=== PATIENT | female | born 1980 | race American Indian/Alaskan Native ===

== ENCOUNTER 2016-11-28 07:05 | Inpatient (IN) | payer SELFPAY ==
--- NOTE | 2016-11-24 12:33 | Anesthesia Consultation ---
Anesthesia Consult and Med Hx Date of service: 11/24/16 - Airway Anesthetic Teeth Evaluation: Good ROM Head & Neck: Adequate Mental/Hyoid Distance: Adequate Mallampati Class: Class II Intubation Access Assessment: Probably Good - Pulmonary Exam CTA: Yes - Cardiac Exam Cardiac Exam: RRR - Pre-Operative Health Status ASA Pre-Surgery Classification: ASA2 Proposed Anesthetic Plan: General - Pulmonary Hx Smoking: Yes Hx Asthma: Yes (resolved) - Central Nervous System Hx Psychiatric Problems: No - Hematic Hx Anemia: Yes - Other Systems Hx Alcohol Use: Yes (occas) Hx Cancer: No
[2016-11-24 12:36] LABS: Basophils % (Auto) 0.4 % (0.0-1.8); Eosinophils % (Auto) 0.6 % (0.0-4.3); Hematocrit 32.9 % (30.3-42.9); Hemoglobin 10.9 gm/dl (10.1-14.3); Mean Corpuscular HGB Conc 33 % (30-34); Mean Corpuscular Hemoglobin 32 pg (28-32); Mean Corpuscular Volume 97 fl (79-97); Platelet Count 185 K/mm3 (140-440); White Blood Count 4.4 K/mm3 (4.5-11.0)
--- NOTE | 2016-11-27 14:38 | Admit Criteria Form ---
Admission Criteria Documentation: AMBULATORY SURGERY EXCEPTION CRITERIA Ambulatory Surgery Exception Criteria ( Place 'X' for any and all applicable criteria): Surgery or procedure performed on ambulatory basis may require inpatient stay for[A] ANY ONE of the following(1)(2)(3)(4)(5)(6)(7)(8)(9): [X] I. A preoperative situation, condition, or finding that warrants inpatient stay as indicated by ANY ONE of the following: [] a) Inpatient care needed because of severity of a disease or condition rather than the surgery (eg, severe cardiac or respiratory disease, severe infection) (15) (16 ) (17) (18) [] b) Emergent procedure (eg, angioplasty for acute ischemia)(19) [X] c) Complex surgical approach or situation as indicated by ANY ONE of the following(3): [X] i) Open approach needed instead of usual endoscopic, transcatheter, or other less invasive procedure [] ii) Difficult approach because of previous operation [] iii) Airway monitoring required after open neck procedures(20)(21) [] iv) Large mass requiring unusually extensive dissection [] v) Additional complicating feature requiring inpatient care (eg, drain management)(22(23): [] d) Major surgery in a pt with high anesthetic risk as indicated by ANY ONE of the following (2)(3)(5)(7)(8): [] i) ASA risk class III or higher (severe systemic disease impairing function) [D] [] ii) Advanced age (eg, older than 85 years)(14)(24) [] iii) Symptomatic heart failure(25) [] iv) Symptomatic asthma or COPD(8)(21) [] v) Morbid obesity with hemodynamic or respiratory problems(20)( 21)(26)(27) [] vi) Obstructive sleep apnea(20)(21) [] vii) Former premature infants who are younger than 60 weeks [] viii) High risk for severe postoperative abnormalities (eg, severe postoperative hypocalcemia after parathyroidectomy for severe hyperparathyroidism)(27)( 28) [] ix) Unstable angina(25) [] e) Drug-related risk requiring inpatient stay as indicated by ANY ONE of the following(5)(10)(14)(32)(33) [] i) Procedure requires discontinuing drugs or other therapy (eg , antiarrhythmic medication, antiseizure medication), which necessitates inpatient observation or treatment.(18)(31) [] ii) Major surgery and high risk drug use as indicated by ANY ONE of the following: [] 1) Active abuse of cocaine or similar drug [] 2) Monoamine oxidase inhibitor use [] 3) Other drug identified as posing risk [] f) Inadequate outpatient care situation as indicated by ANY ONE of the following(5)(10)(14)(32)(33) [] i) Patient lives remote from medical facility and procedure has urgent complication potential, and temporary nearby residence cannot be arranged [] ii) Patient will have postprocedure incapacitation and inadequate assistance at home, or alternative level of care cannot be arranged. [] iii) Patient will have long general anesthesia or procedure side effect resolution time, and competent person to stay with patient on first postoperative night at home or alternative level of care cannot be arranged. []iv) Other inadequate outpatient situation that cannot be handled by other means [] II. A perioperative event, condition, or finding that warrants inpatient stay as indicated by ANY ONE of the following (1)(2)(3): [] a) Inadequate physiologic recovery: cardiovascular, respiratory, or hemodynamic status not normal or near preoperative baseline(18) [] b) Hemodynamic instability [] c) Patient not alert with near normal or baseline mental status [] d) Temperature not normal or as expected and not appropriate for outpatient treatment of condition [] e) Ambulatory or appropriate activity level status not yet achieved post procedure [E](34)(35)(36) [] f) Operative site not appropriate (eg, unexpected or excessive drainage or bleeding) [] g) Postoperative effects not resolved or adequately managed (eg, significant pain or vomiting not appropriate for outpatient or next level of care)(10)(12) [] h) Complicating features requiring inpatient care as indicated by ANY ONE of the following(37): [] i) Severe complications of procedure (eg, bowel injury, airway compromise, vascular injury,severe hemorrhage) [] ii) Extensive (eg, dissection far beyond usual scope of procedure ) or prolonged (eg, 120 minutes beyond usual) surgery needed requiring inpatient postoperative care [] iii) Conversion to an open or complex procedure that requires inpatient care (eg, open vs laparoscopic cholecystectomy, abdominal vs vaginal hysterectomy)(38) [] iv) Comorbid condition or test result identified during or post procedure that requires inpatient care (7) [] v) Malignant hyperthermia(30) [] vi) Other complicating feature requiring inpatient care(22)(23) Inpatient stay may be needed until ALL of the following are present (1)(2)(3)(4) (5)(6)(10)(14)(33)(40): []a) Physiologic recovery: cardiovascular, respiratory, and hemodynamic status normal or near preoperative baseline []b) Hemodynamic stability []c) Patient alert, with near normal or baseline mental status []d) Temperature appropriate: patient afebrile or temperature appropriate for outpt treatment of condition []e) Activity level appropriate: ambulatory or appropriate activity level post procedure []f) Operative site appropriate as indicated by ALL of the following: []i) Site dry or with expected drainage []ii) Any blood noted is as expected for procedure. []g) Postoperative effects resolved or managed as indicated by ALL of the following: []i) Pain management appropriate for outpatient (or next level of) care(10) []ii) Minimal nausea and vomiting: if present, successfully treated with oral medication(12) []iii) Headache, dizziness, or drowsiness (if present) are mild. []h) Voiding status acceptable as indicated by ANY ONE of the following: []i) Voiding spontaneously []ii) No voiding but instructions given for follow-up in 6 to 8 hours []iii) Urinary catheter in place, and instructions given for follow-up []i) Complicating features requiring inpatient care manageable at a lower level of care(37) []j) Comorbid conditions manageable at a lower level of care(37) The original [employer] content created by [employer] has been revised. The portions of the content which have been revised are identified through the use of italic text or in bold, and [facility] [employer] has neither reviewed nor approved the modified material. All other unmodified content is copyright [employer]. Please see references footnoted in the original [employer] edition 2016 Admission Criteria Met: Yes
[~2016-11-28 07:05] MED LIST: NACL 0.9% 1000 ML 1,000 ML IV SCH; NEURONTIN PO NR; PEPCID PO NR; VERSED IV NR
[2016-11-28] MEDS ORDERED: SUBLIMAZE IV SCH (07:32)
[2016-11-28] MEDS ORDERED: GARAMYCIN 80 MG in NACL 0.9% 100 ML IV SCH (07:45)
--- NOTE | 2016-11-28 07:45 | Short Stay Summary ---
Short Stay Documentation Date of service: 11/28/16 Narrative H&P: Pt is a 36yo BF G0 LMP 11/22/16 presents for surgical evaluation and treatment of her uterine fibroids. Pelvic u/s showed an enlarged uterus with 5 fibroids. Pt desires future fertility, and therefore is scheduled for an Abdominal Myomectomy. - History Principal diagnosis: Symptomatic fibroid uterus H&P: obtained from office Past Medical History: No medical history Past Surgical History: Other (Bartholin cyst removal) Social history: no significant social history, single - Allergies and Medications Current Medications: Allergies Penicillins Allergy (Verified 11/20/16 16:34) Itching Home Medications Medication Instructions Recorded Confirmed Last Taken Type Biotin 10,000 mcg PO DAILY 11/20/16 11/20/16 Unknown History Ferrous Sulfate [Feosol] 325 mg PO QDAY 11/20/16 11/20/16 Unknown History Folic Acid 20 mg PO QDAY 11/20/16 11/20/16 Unknown History Multivitamin with Folic Acid [One 400 mcg PO DAILY 11/20/16 11/20/16 Unknown History Daily Multivitamin Tablet] traMADol [Ultram] 50 mg PO Q4HR PRN 11/20/16 11/20/16 Unknown History Active Medications Celecoxib (Celebrex) 200 mg PO PREOP NR Stop: 11/28/16 23:00 Famotidine (Pepcid) 20 mg PO PREOP NR Stop: 11/28/16 23:01 Fentanyl (Sublimaze) 100 mcg IV ONCE TYLOR Stop: 11/28/16 23:00 Gabapentin (Neurontin) 300 mg PO PREOP NR Stop: 11/28/16 23:01 Sodium Chloride (Nacl 0.9% 1000 Ml) 1,000 mls @ 100 mls/hr IV DIRECT TYLOR Clindamycin HCl (Cleocin 600 Mg/50 Ml) 600 mg in 50 mls @ 100 mls/hr IV PREOP TYLOR PRN Reason: Protocol Gentamicin Sulfate 80 mg/ (Sodium Chloride) 102 mls @ 200 mls/hr IV PREOP TYLOR PRN Reason: Protocol - Physical exam General appearance: no acute distress Integumentary: no rash HEENT: Atraumatic Lungs: Clear to auscultation Breasts: deferred Heart: Regular rate Gastrointestinal: normal Female Genitourinary: deferred Rectal Exam: deferred Extremities: No edema Neurological: Normal speech - Brief post op/procedure progress note Date of procedure: 11/28/16 Pre-op diagnosis: Symptomatic fibroid uterus Post-op diagnosis: same Procedure: Abdominal myomectomy Anesthesia: GETA, regional (MARISOL block) Findings: A 16 weeks size multimyomatous uterus with 3 large fibroids , tortuous fallopian tubes bilaterally, and normal ovaries bilaterally. Surgeon: YENY WILL Estimated blood loss: other (150ml) Pathology: list (uterine fibroids) Specimen disposition: to lab Condition: stable - Hospital course Hospital course: Unremarkable. Pt tolerated the abdominal myomectomy without complications. By POD #1 she was tolerating a reg diet without nausea or vomiting, ambulating and voiding without difficulty. She was therefore discharged to home on POD #1 in stable condition. - Disposition Condition at discharge: Good Disposition: DISCHARGED TO HOME OR SELFCARE - Discharge Diagnoses (1) Status post myomectomy Status: Resolved Short Stay Discharge Plan Activity: no restrictions Diet: regular Wound: open to air, keep clean and dry Follow up with: PRIMARY CAREMD [Primary Care Provider] - 7 Days YENY WILL MD [Staff Physician] - 14 Days Prescriptions: Ibuprofen [Motrin] 800 mg PO Q8HR PRN #30 tablet PRN Reason: Mild Pain Unrelieved By Apap oxyCODONE /ACETAMINOPHEN [Percocet 5/325 mg] 1 tab PO Q6H PRN #30 tablet PRN Reason: Pain, Moderate (4-6)
[2016-11-28] MEDS ORDERED: CLEOCIN 600 MG/50 mL 600 MG/50 ML BAG IV SCH (08:00)
[2016-11-28] MEDS ORDERED: DIPRIVAN 10 MG/ML IV ONE (08:29)
[2016-11-28] MEDS ORDERED: ZOFRAN ONE (08:30)
[2016-11-28] MEDS ORDERED: ZEMURON IV ONE (08:30)
[2016-11-28] MEDS ORDERED: XYLOCAINE MPF 2% ONE (08:30)
[2016-11-28] MEDS ORDERED: DILAUDID ONE (08:30)
[2016-11-28] MEDS ORDERED: DECADRON ONE (08:30)
[2016-11-28] MEDS ORDERED: MARCAINE-EPI 0.5%-1:200,000 INFILTRATI ONE ×2 (08:40→09:00)
[2016-11-28] MEDS ORDERED: NACL BACTERIOSTATIC INFILTRATI ONE (08:43)
[2016-11-28] MEDS ORDERED: XYLOCAINE 1% 20 mL INFILTRATI NR (09:00)
[2016-11-28] MEDS ORDERED: VERSED IV NR (09:00)
[2016-11-28] MEDS ORDERED: DECADRON IV ONE (09:00)
[2016-11-28] MEDS ORDERED: NEURONTIN PO NR (09:00)
[2016-11-28] MEDS ORDERED: ACD-A 500 ML IV ONE (10:08)
[2016-11-28] MEDS ORDERED: NACL 0.9% 100 ML ONE (10:10)
[2016-11-28] MEDS ORDERED: ACD-A IV ONE (11:06)
[2016-11-28] MEDS ORDERED: NACL 0.9% IV ONE (11:08)
[2016-11-28] MEDS ORDERED: NACL 0.9% IR ONE (11:08)
[2016-11-28] MEDS ORDERED: NARCAN 0.4 MG/1 ML IV PRN ×2 (11:33→12:00)
[2016-11-28] MEDS ORDERED: MORPHINE PCA 30MG/30ML IV SCH (12:00)
[2016-11-28] MEDS ORDERED: BENADRYL IV PRN (12:00)
[2016-11-28] MEDS ORDERED: NORCO 5/325 PO PRN (12:00)
[2016-11-28] MEDS ORDERED: MILK OF MAGNESIA PO PRN (12:00)
[2016-11-28] MEDS ORDERED: D5LR 1,000 ML IV SCH (12:00)
[2016-11-28] MEDS ORDERED: TYLENOL PO PRN (12:00)
[2016-11-28] MEDS ORDERED: PERCOCET 5/325 PO PRN (12:00)
[2016-11-28] MEDS ORDERED: ZOFRAN IV PRN (12:00)
[2016-11-28] MEDS: TORADOL IV SCH ×2 (12:15→17:58)
--- NOTE | 2016-11-28 12:32 | Operative Report ---
Operative Report Operative Report: Date of procedure: 11/28/2016 Pre-operative diagnosis: Symptomatic fibroid uterus Post-operative diagnosis: Same Procedure name(s): Abdominal myomectomy Surgeon: Devin Da Silva MD Beef Tagger: None Anesthesia: General endotracheal intubation by Dr. Darryl Cornejo EBL: 150 mL's Findings: A 16 week size multi-myomatous uterus with 3 large fibroids removed. Both fallopian tubes appeared tortuous and both ovaries were normal Procedure: After the patient was correctly identified, she was prepped and draped in the usual sterile fashion and placed in dorsolithotomy position. First the skin knife was used to make a transverse skin incision, the incision was extended down to layer of the fascia which was nicked in midline and extended laterally using Bovie cautery. The rectus muscles were dissected off the rectus fascia both superiorly and inferiorly, the rectus bellies in the midline and the peritoneum was entered under direct visualization. The peritoneal incision was extended both superiorly and inferiorly, and exploration of the pelvic organs found a large 5 cm pedunculated myoma anteriorly, and two 6 cm and 7 cm intramural fibroids were noted. Both fallopian tubes appeared to be tortuous with normal, both ovaries appeared to be normal. The Pitressin solution was infiltrated into the base of the pedunculated myoma, and in the serosal layer of the intramural myomas. The pedunculated myoma was excised at the base and sent to pathology. Serosal layer of the intramural myomas were also entered and 2 large fibroids were removed using both sharp and blunt dissection. The endometrial cavity was entered, and thus the patient will need a should she get . After all the fibroids were removed the procedure was considered complete. The myometrial defect was reapproximated using 2-0 Monocryl suture in a running interlocking fashion, thus obliterating the space, and the serosal layer was also reapproximated using 2-0 Monocryl suture in a baseball stitch fashion. Copious amounts or irrigation was then performed, and the Tisseel sealant was sprayed over the serosal layer, and excellent hemostasis was assured. Interceed was also placed over the serosal layer, and the uterus was returned to its normal anatomical position. The peritoneal was closed using 0 Vicryl suture in a running interlocking fashion, and then the rectus muscles were loosely reapproximated using 0 Vicryl suture in a [id number] configuration. The fascia was then closed using 0 Vicryl suture in a running interlocking fashion. The subcutaneous layer was made hemostatic using Bovie cautery and the skin edges reapproximated using 3-0 Monocryl suture in a subcuticular fashion. The patient tolerated the procedure well and was transported to recovery in stable condition.
--- NOTE | 2016-11-28 15:45 | Post Anesthesia Evaluation ---
- Post Anesthesia Evaluation Patient Participated: Yes Airway Patent: Yes Stable Respiratory Function: Yes Nausea/Vomiting: No Temp > 96.8F: Yes Pain Manageable: Yes Adequeate Hydration: Yes Anesthesia Complications: No
[2016-11-28] MEDS: CLEOCIN 600 MG/50 mL 600 MG/50 ML BAG IV SCH (18:23)
[2016-11-28] MEDS: GARAMYCIN/NS 80 MG/100 ML 100 ML IV SCH (19:01)
[2016-11-28] MEDS ORDERED: SENOKOT S PO SCH (22:00)
[2016-11-29] MEDS: TORADOL IV SCH ×2 (00:26→05:52)
[2016-11-29] MEDS: CLEOCIN 600 MG/50 mL 600 MG/50 ML BAG IV SCH (00:32)
[2016-11-29] MEDS: GARAMYCIN/NS 80 MG/100 ML 100 ML IV SCH (03:55)
[2016-11-29 06:52] LABS: Hematocrit 33.1 % (30.3-42.9); Hemoglobin 10.5 gm/dl (10.1-14.3)
--- NOTE | 2016-11-29 09:42 | Progress Note ---
Assessment and Plan - Patient Problems (1) Status post myomectomy Onset Date: 11/29/16 Current Visit: Yes Status: Resolved Plan to address problem: A: S/P Abdominal myomectomy - POD #1 Doing well P: Probable discharge to home this evening Advance to reg diet Subjective - Subjective Date of service: 11/29/16 Principal diagnosis: s/p Abdominal myomectomy - POD #1 Interval history: Pt is feeling well without complaints. Tolerating a liquid diet without nausea or vomiting, ambulating and voiding without difficulty. + Flatus. +BM Patient reports: appetite normal, voiding normally, pain well controlled, flatus , bowel movement, ambulating normally Objective - Vital Signs Latest vital signs: Vital Signs Temp Pulse Pulse Resp BP BP Pulse Ox 11/29/16 09:08 97.4 F L 54 L 16 116/71 11/29/16 07:30 18 11/29/16 06:00 18 11/29/16 04:40 98.0 F 65 20 110/67 11/29/16 04:00 18 11/29/16 02:00 20 11/29/16 00:00 98.1 F 53 L 20 117/66 11/28/16 22:00 18 11/28/16 20:10 18 11/28/16 20:00 98.2 F 66 20 117/69 11/28/16 16:00 97.6 F 74 20 102/78 11/28/16 12:45 84 16 133/81 100 11/28/16 12:30 97.1 F L 84 22 127/75 100 11/28/16 12:15 82 19 126/74 100 11/28/16 12:00 82 17 135/81 100 11/28/16 11:50 72 20 151/84 11/28/16 11:45 72 24 148/86 100 11/28/16 11:40 83 20 146/118 100 11/28/16 11:35 69 17 166/81 100 11/28/16 11:32 97.6 F 74 17 154/122 100 11/28/16 10:36 98.3 F 65 16 130/76 98 11/28/16 09:45 74 15 130/74 100 Intake and Output 11/28/16 11/29/16 11/29/16 22:59 06:59 14:59 Intake Total 970 240 Output Total 2600 1400 Balance -1630 -1160 Intake: IV 850 CLEOCIN 600 MG/50 mL 600 150 mg In 50 ml @ 100 mls/hr IV Q8H [facility] Rx#:[id number] D5lr 1,000 ml @ 125 mls/ 500 hr IV DIRECT TYLOR Rx#: [id number] Garamycin 80 mg In NaCl 0 100 .9% 100 ml @ 200 mls/hr IV PREOP TYL[facility] Rx#: [id number] Garamycin/Ns 80 mg/100 ml 100 100 ml @ 200 mls/hr IV Q8H [facility] Rx#:[id number] Oral 120 240 Output: Urine 2600 1400 Indwelling Catheter 2600 1400 Other: Total, Intake Amount 120 240 Total, Output Amount 900 800 - Exam Breasts: Present: deferred Cardiovascular: Present: Regular rate Lungs: Present: Clear to auscultation Abdomen: Present: normal appearance, soft Uterus: Present: normal Extremities: Present: normal Incision: Present: normal, dry, intact, dressed - Labs Labs: Laboratory Tests 11/24/16 11/24/16 11/24/16 12:10 12:10 12:10 WBC 4.4 L RBC 3.40 L Hgb 10.9 Hct 32.9 MCV 97 MCH 32 MCHC 33 RDW 17.0 H Plt Count 185 Lymph % (Auto) 26.4 [place] % (Auto) 7.6 H Eos % (Auto) 0.6 Baso % (Auto) 0.4 Lymph # 1.2 [place] # 0.3 Eos # 0.0 Baso # 0.0 Seg Neutrophils % 65.0 Seg Neutrophils # 2.8 HCG, Qual Negative Blood Type A POSITIVE Antibody Screen TNR ORLY Antibody Screen Negative 11/29/16 06:36 WBC RBC Hgb 10.5 Hct 33.1 MCV MCH MCHC RDW Plt Count Lymph % (Auto) [place] % (Auto) Eos % (Auto) Baso % (Auto) Lymph # [place] # Eos # Baso # Seg Neutrophils % Seg Neutrophils # HCG, Qual Blood Type Antibody Screen ORLY Antibody Screen
[2016-11-29 12:58] VITALS: BP 122/71
== END 2016-11-29 14:55 | disposition home or self-care (01) | DRG 743 ==
LOC: 3A 07:05 → OB 11:56
PROVIDERS: ADMIT Obstetrics & Gynecology; ATTEND Obstetrics & Gynecology
PROC: 0UB90ZZ Excision of Uterus, Open Approach (ICD-10-PCS; principal; 2016-11-28)
DX: D25.1 Intramural leiomyoma of uterus (principal); Z72.89 Other problems related to lifestyle
CPT/HCPCS: 36415; 64450; 84703; 85014; 85018; 85025; 86850; 86900; 86901; 88307; C1765; C9250; J1100; J1170; J1580; J1885; J2250; J2270; J2405; J2704; J3010; J7030; J7121